=== PATIENT | male | born 1975 | race African-American/Black ===

== ENCOUNTER 2021-11-09 09:09 | Emergency (ER) | payer SELFPAY ==
--- NOTE | 2021-11-09 10:09 | RAD REPORT ---
EXAM DESCRIPTION: Rui Single View11/09/2021 9:39 am CLINICAL HISTORY: Cough COMPARISON: none FINDINGS: The lung interstitial pattern appears mildly prominent. The brandie are mildly prominent probably lymphadenopathy. Heart is normal size IMPRESSION: Lung interstitial pattern appears mildly prominent. This probably indicates chronic lung disease. Brandie are mildly prominent probably lymphadenopathy. This can be seen with sarcoidosis. Follow up ches t x-ray in 3 months recommended for re-evaluation
[2021-11-09] MEDS ORDERED: dexAMETHasone 10 MG/ML VIAL ONE (10:20)
[2021-11-09] MEDS ORDERED: LEVALBUTEROL 1.25 MG/3 ML NEB ONE (10:20)
[2021-11-09 10:50] LABS: SARS-COV-2 RT PCR POSITIVE (NEGATIVE)
[2021-11-09] MEDS ORDERED: CASIRIVIMAB/IMDEVIMAB 10 ML VIAL ONE (11:14)
[2021-11-09] MEDS ORDERED: NA CHLORIDE 0.9% 250 ML ONE (11:15)
--- NOTE | 2021-11-09 13:29 | ER ---
Nurse's Notes [facility] Name: Brian Alcazar Jr Age: 45 yrs Sex: Male : 1975 Arrival Date: 11/09/2021 Time: 09:13 Bed 17 Private MD: Diagnosis: Coronavirus infection, unspecified Presentation: 11/09 09:22 Chief complaint: Patient states: Painful cough, and sore/ raw throat that began 4 days ss ago. Denies fever. Coronavirus screen: Client denies travel out of the [place] in the last 14 days. Client presents with at least one sign or symptom that may indicate coronavirus-19. Standard/surgical mask placed on the client. Ebola Screen: Patient denies exposure to infectious person. Patient denies travel to an Ebola-affected area in the 21 days before illness onset. Initial Sepsis Screen: Does the patient meet any 2 criteria? No. Patient's initial sepsis screen is negative. Does the patient have a suspected source of infection? No. Patient's initial sepsis screen is negative. Risk Assessment: Do you want to hurt yourself or someone else? Patient reports no desire to harm self or others. Onset of symptoms was November 05, 2021. 09:22 Method Of Arrival: Ambulatory ss 09:22 Acuity: GRIFFIN 3 ss Historical: - Allergies: 09:24 No Known Allergies; ss - Home Meds: 09:24 None [Active]; ss - PMHx: 09:24 Sarcoidosis; ss - PSHx: 09:24 None; ss - Immunization history:: Client reports receiving the 2nd dose of the Covid vaccine. - Social history:: Smoking status: Patient denies any tobacco usage or history of. Screenin:55 Abuse screen: Denies threats or abuse. Nutritional screening: No deficits noted. 6 Tuberculosis screening: No symptoms or risk factors identified. Fall Risk None identified. Assessment: 09:54 General: Appears in no apparent distress. Behavior is calm, cooperative. Pain: [facility] Complains of pain in mouth Pain currently is 4 out of 10 on a pain scale. 11:23 Reassessment: No changes from previously documented assessment. Patient is alert, [facility] oriented x 3, equal unlabored respirations, skin warm/dry/pink. 12:12 Reassessment: No changes from previously documented assessment. no reaction noted to jh6 med infusion. call light in reach. 12:54 Reassessment: Patient and/or family updated on plan of care and expected duration. Pain jh6 level reassessed. Patient is alert, oriented x 3, equal unlabored respirations, skin warm/dry/pink. infusion complete, no reaction to infusion, call lighting in reach. 13:28 Reassessment: Patient and/or family updated on plan of care and expected duration. Pain jh6 level reassessed. Patient is alert, oriented x 3, equal unlabored respirations, skin warm/dry/pink. Patient denies pain at this time. Vital Signs: 09:22 BP 129 / 92; Pulse 74; Resp 16; Temp 98.1(O); Pulse Ox 99% on R/A; Weight 120.2 kg; ss Height 6 ft. 4 in. (193.04 cm); Pain 8/10; 11:23 BP 132 / 80; Pulse 76; Resp 17; Pulse Ox 99% on R/A; jh6 11:40 BP 143 / 82; Pulse 64; Resp 17; Pulse Ox 96% on R/A; jh6 11:55 BP 142 / 80; Pulse 70; Resp 17; Pulse Ox 97% on R/A; jh6 12:00 BP 144 / 80; Pulse 65; Resp 17; Pulse Ox 96% ; jh6 12:15 BP 132 / 86; Pulse 66; Resp 17; Pulse Ox 96% ; Pain 2/10; jh6 12:30 BP 134 / 84; Pulse 65; Resp 17; Pulse Ox 97% ; jh6 12:45 BP 132 / 86; Pulse 63; Resp 17; Pulse Ox 99% ; jh6 13:00 BP 129 / 84; Pulse 66; Resp 17; Pulse Ox 99% on R/A; jh6 13:40 BP 130 / 84; Pulse 65; Resp 17; Temp 98.3(O); Pulse Ox 100% ; jh6 09:22 Body Mass Index 32.26 (120.20 kg, 193.04 cm) ED Course: 09:13 Patient arrived in ED. mr 09:24 Triage completed. ss 09:24 Arm band placed on right wrist. ss 09:38 XRAY Chest (1 view) In Process Unspecified. EDMS 09:46 Rob Ring PA is PHCP. jmm 09:46 Jaime Harmon MD is Attending Physician. [facility] 09:53 Tarsha Verduzco, RN is Primary Nurse. 6 09:55 Call light in reach. Adult w/ patient. 6 09:55 No provider procedures requiring assistance completed. jh6 11:22 Inserted saline lock: 20 gauge in right antecubital area, using aseptic technique. 6 13:49 IV discontinued, intact, bleeding controlled, No redness/swelling at site. Pressure jh6 dressing applied. Administered Medications: 10:15 Drug: Decadron (dexamethasone) 10 mg Route: IM; Site: left deltoid; 6 10:38 Follow up: Response: No adverse reaction 6 10:15 Drug: Xopenex (levalbuterol) (3) 1.25 mg Route: Inhalation; 6 10:38 Follow up: Response: No adverse reaction 6 11:48 Drug: Casirivimab-Imdevimab Dose Pack 120 mg/mL-120 mg/mL (EUA) 1 application Route: jh6 IV; Rate: calculated rate; Site: right antecubital; 13:28 Follow up: Response: No adverse reaction [facility] Outcome: 13:28 Discharge ordered by . [facility] 13:50 Discharged to home ambulatory. 6 13:50 Condition: improved 13:50 Discharge instructions given to patient, Instructed on discharge instructions, follow up and referral plans. Demonstrated understanding of instructions, follow-up care. 13:50 Patient left the ED. 6 Signatures: Dispatcher [employer] EDMS Rob Ring PA PA [facility] Mirella Brennan mr Skylar Escobedo RN RN ss Hastedt, Jennifer, FATOUMATA RN 6
--- NOTE | 2021-11-09 13:29 | EDPHYS ---
Physician Documentation [facility] Name: Brian Alcazar Jr Age: 45 yrs Sex: Male : 1975 Arrival Date: 11/09/2021 Time: : Bed 17 Private MD: ED Physician Jaime Harmon HPI: 11/09 09:25 This 45 yrs old Black Male presents to ER via Ambulatory with complaints of Cough. jmm 09:25 Onset: The symptoms/episode began/occurred gradually, 4 day(s) ago. Modifying factors: jmm The symptoms are alleviated by nothing, the symptoms are aggravated by nothing. Associated signs and symptoms: Pertinent positives: fever, sore throat. It is unknown whether or not the patient has had similar symptoms in the past. Historical: - Allergies: :24 No Known Allergies; ss - Home Meds: :24 None [Active]; ss - PMHx: :24 Sarcoidosis; ss - PSHx: :24 None; ss - Immunization history:: Client reports receiving the 2nd dose of the Covid vaccine. - Social history:: Smoking status: Patient denies any tobacco usage or history of. ROS: 09:25 Constitutional: Positive for body aches, chills. jmm 09:25 Respiratory: Positive for cough, shortness of breath, wheezing. 09:25 All other systems are negative. Exam: 09:25 Constitutional: This is a well developed, well nourished patient who is awake, alert, jmm and in no acute distress. Head/Face: atraumatic. Eyes: EOMI, no conjunctival erythema appreciated ENT: Moist Mucus Membranes Neck: Trachea midline, Supple Chest/axilla: Normal chest wall appearance and motion. 09:25 Abdomen/GI: Non distended, soft Back: Normal ROM Skin: General appearance color normal MS/ Extremity: Moves all extremities, no obvious deformities appreciated, no edema noted to the lower extremities Neuro: Awake and alert, normal gait Psych: Behavior is normal, Mood is normal, Patient is cooperative and pleasant 09:25 Cardiovascular: Rate: normal, Rhythm: regular, Pulses: no pulse deficits are appreciated. 09:25 Respiratory: the patient does not display signs of respiratory distress, Respirations: normal, Breath sounds: wheezing: that is mild, is heard diffusely. Vital Signs: 09:22 BP 129 / 92; Pulse 74; Resp 16; Temp 98.1(O); Pulse Ox 99% on R/A; Weight 120.2 kg; Height 6 ft. 4 in. (193.04 cm); Pain 8/10; 11:23 BP 132 / 80; Pulse 76; Resp 17; Pulse Ox 99% on R/A; jh6 11:40 BP 143 / 82; Pulse 64; Resp 17; Pulse Ox 96% on R/A; jh6 11:55 BP 142 / 80; Pulse 70; Resp 17; Pulse Ox 97% on R/A; jh6 12:00 BP 144 / 80; Pulse 65; Resp 17; Pulse Ox 96% ; jh6 12:15 BP 132 / 86; Pulse 66; Resp 17; Pulse Ox 96% ; Pain 2/10; jh6 12:30 BP 134 / 84; Pulse 65; Resp 17; Pulse Ox 97% ; jh6 12:45 BP 132 / 86; Pulse 63; Resp 17; Pulse Ox 99% ; jh6 13:00 BP 129 / 84; Pulse 66; Resp 17; Pulse Ox 99% on R/A; jh6 13:40 BP 130 / 84; Pulse 65; Resp 17; Temp 98.3(O); Pulse Ox 100% ; 6 09:22 Body Mass Index 32.26 (120.20 kg, 193.04 cm) MDM: 10:08 Patient medically screened. chele 13:27 Data reviewed: vital signs, nurses notes. Counseling: I had a detailed discussion with chele the patient and/or guardian regarding: the historical points, exam findings, and any diagnostic results supporting the discharge/admit diagnosis, lab results, radiology results, the need for outpatient follow up, to return to the emergency department if symptoms worsen or persist or if there are any questions or concerns that arise at home. 11/09 09:25 Order name: Strep; Complete Time: 10:09 12 09:25 Order name: COVID-19/FLU A+B (Document "Date of Onset" if Symptomatic); Complete Time: ss 10:55 11/09 09:25 Order name: XRAY Chest (1 view); Complete Time: 10:10 ss 11/09 09:52 Order name: Throat Culture EDUT 11/09 10:50 Order name: Saline Lock; Complete Time: 11:22 [facility] Administered Medications: 10:15 Drug: Decadron (dexamethasone) 10 mg Route: IM; Site: left deltoid; 6 10:38 Follow up: Response: No adverse reaction [facility] 10:15 Drug: Xopenex (levalbuterol) (3) 1.25 mg Route: Inhalation; jh6 10:38 Follow up: Response: No adverse reaction [facility] 11:48 Drug: Casirivimab-Imdevimab Dose Pack 120 mg/mL-120 mg/mL (EUA) 1 application Route: jh6 IV; Rate: calculated rate; Site: right antecubital; 13:28 Follow up: Response: No adverse reaction [facility] Disposition: 15:29 Co-signature as Attending Physician, Jaime Harmon MD I agree with the assessment and rn plan of care. Attestation: The patient's history, exam findings, diagnostics, and a summary of any interventions or procedures was reviewed in detail with Rob NEIL. Disposition Summary: 11/09/21 13:28 Discharge Ordered Location: Home [facility] Condition: Stable [facility] Diagnosis - Coronavirus infection, unspecified [facility] Followup: [facility] - With: Private Physician - When: 2 - 3 days - Reason: Recheck today's complaints, Continuance of care, Re-evaluation by your physician Discharge Instructions: - Discharge Summary Sheet [facility] - COVID-19 [facility] Forms: - Medication Reconciliation Form [facility] - Thank You Letter [facility] - Antibiotic Education [facility] - Prescription Opioid Use [facility] Signatures: Dispatcher [employer] Rob Tucker PA PA [facility] Jaime Harmon MD MD rn Smirch, Shelby, RN RN ss Hastedt, Jennifer, RN RN jh6
[2021-11-09 14:16] VITALS: BP 130/84; TEMP 98.3; O2SAT 100
== END 2021-11-09 13:50 | disposition home or self-care (01) ==
LOC: ER 09:09
DX: U07.1 COVID-19 (principal)
CPT/HCPCS: 0240U; 71045; 87070; 87081; 96372; 96374; 99284; J1100; J7050; M0243